=== PATIENT | male | born 2000 | race Hispanic/Latino ===

== ENCOUNTER 2024-04-17 10:29 | Emergency (ER) | payer OTHER ==
[2024-04-17] MEDS ORDERED: Acetaminophen 500 MG TAB ONE (12:04)
== END 2024-04-17 12:26 | disposition home or self-care (01) ==
LOC: ERS 10:29
DX: M25.511 Pain in right shoulder (principal); V48.1XXA Car passenger injured in noncollision transport accident in nontraffic accident, initial encounter; Y92.410 Unspecified street and highway as the place of occurrence of the external cause; Z75.8 Other problems related to medical facilities and other health care
CPT/HCPCS: 70450; 71045; 72125